=== PATIENT | female | born 1965 | race Hispanic/Latino ===

== ENCOUNTER 2018-06-01 08:26 | Inpatient (IN) | payer OTHER ==
[~2018-06-01] VITALS: Ht 167.6 cm; Wt 88.5 kg
[~2018-06-01 08:26] MED LIST: ALBUTEROL0.63 MG/3 INH; ATENOLOL50 MG PO; BUPIVACAINE 7.5MG/ML /DEXTROSE 82.5MG/ML 2 ML AMP INJ ONE; COCONUT OIL1000 MG PO; FENTANYL CITRATE/PF 100MCG/2 ML INJ ONE; MIDAZOLAM HCL 2 MG/2 ML VIAL ONE; NORCO 10-325 T1 EACH PO; ROPIVACAINE 246.25 MG, EPINEPHRINE HCL 1:1000 1ML 0.5 MG, CLONIDINE HCL 0.08 MG, KETORO... IV ONE; TRIAMTERENE PO; VIT E PO
--- OUTSIDE RECORDS SUMMARY | 2018-06-01 08:28 | XMS REPORT ---
Author Author [facility] Address Unknown Phone Unavailable Care Team Providers Care Jacquard Card Cutter Name Role Phone UNKNOWN, REFFERING PP Unavailable RASSOLI, AMIR Unavailable Unavailable Problems This patient has no known problems. Allergies, Adverse Reactions, Alerts This patient has no known allergies or adverse reactions. Medications This patient has no known medications. Encounters Start Date/Time End Date/Time Encounter Type Admission Type Attending Clinicians Care Facility Care Department Encounter ID 2018-05-10 11:43:32 2018-05-10 11:43:32 Emergency [facility] [id number] 2018-05-10 00:00:00 2018-05-10 00:00:[address] [facility] [id number] 2018-05-10 00:00:00 2018-05-10 00:00:[address] [facility] [id number] 2018-05-10 00:00:00 2018-05-10 00:00:[address] [facility] [id number] 2017-02-04 02:04:00 2017-02-04 02:04:00 Emergency E [facility] [id number] Results Test Description Test Time Test Comments Text Results Atomic Results Result Comments XR SHOULDER 2+V.COMPLETE-LEFT 2017-02-04 05:18:13 AFTER HOURS SERVICE ON: 02/04/2017 5:18 AMLeft Shoulder, 2 ViewsLocation Code [id number]: Pain Findings:There is osteopenia. Nondisplaced fracture is noted in the bilateralhumeral head and neck. Glenohumeral joint is within normal limits. Acromioclavicular joint is unremarkable.Impression:1. No dislocation.2. Nondisplaced humeral head and neck fracture. XR HUMERUS 2+V.-LEFT 2017-02-04 05:16:00 AFTER HOURS SERVICE ON: 02/04/2017 5:16 AMLeft Humerus, 2 Views Location Code [id number]: PainFindings:Study is limited technically. There is osteopenia. A nondisplacedlateral humeral head fracture is noted extending to the humeral neck.There is no glenohumeral dislocation.Impression:Nondisplaced lateral humeral head and neck fracture. Urinalysis Complete 2016-12-17 07:30:00 Color (test code=COLOR) Yellow Yellow,Straw,Pl yellow Clarity (test code=CLAR) Clear Clear Specific Jasper (test code=SPGR) 1.023 1.001-1.035 pH (test code=PH) 6.5 5.0-9.0 Ketone (test code=KET) Negative mg/dL Negative Glucose (test code=GLUCUR) Negative mg/dL Negative Protein (test code=PROT) Negative mg/dL Negative Bilirubin (test code=BILI) Negative mg/dL Negative Occult Blood (test code=UDOB) Negative Negative Urobilinogen (test code=UROB) 0.2 mg/dL 0.2-1.0 Nitrite (test code=NIT) Negative Negative Leuk Esterase (test code=LEUK) Negative Negative Micros Exam (test code=MEXAM) Not indicated 85427&PELVIS [id number] 06:55:23CT OF THE ABDOMEN AND PELVIS WITH CONTRASTHISTORY: Abdominal painTECHNIQUE:5 millimeters contrast enhanced axial images of the abdomen and pelviswere performed with venous delays. The images were reviewed in softtissue, lung and bone windows. 2 mm coronal images were reformatted. 100mL of Isovue-300 is given IV. The GFR is greater than 60COMPARISON: None.FINDINGS:Abdomen findings: The liver, adrenals, spleen, pancreas, gallbladder, kidneys and lungwindows are unremarkable.Pelvis findings:Prior hysterectomy. The distal ureters, bladder , appendix andremainder of the bowel are unremarkable. Bone windows are normal.IMPRES ANNA:1. CK [id number] 05:45:00* Test Item Value Reference Range Comments CK (test code=CK) 46 U/L 26-192 CK [id number] 05:45:00* Test Item Value Reference Range Comments CK (test code=CK) 46 U/L 26-192 CKMB (test code=CKMB) 1.3 ng/mL 0.0-2.8 CKMB% (test code=CKMBP) 2.8 % 0.0-3.4 Comprehensive Metabolic [id number] 05:45:00* Test Item Value Reference Range Comments Sodium (test code=NA) 143 mmol/L 135-145 Potassium (test code=K) 4.4 mmol/L 3.5-5.1 Chloride (test code=CL) 108 mmol/L 98-105 Carbon Dioxide (test code=CO2) 26 mmol/L 22-29 Glucose (test code=GLU) 121 mg/dL 70-115 Blood Urea Nitrogen (test code=BUN) 24 mg/dL 6-20 Creatinine (test code=CREAT) 1.0 mg/dL 0.5-0.9 Calcium (test code=CA) 8.8 mg/dL 8.3-10.5 Prot Total (test code=TP) 6.7 g/dL 6.4-8.3 Albumin (test code=ALB) 3.9 g/dL 3.5-5.2 A/G Ratio (test code=AGRATIO) 1.4 Ratio Globulin (test code=GLOB) 2.8 2.9-3.1 Bili Total (test code=TBIL) <0.1 mg/dL 0.1-0.9 Alk Phos (test code=APHOS) 82 U/L 35-104 AST (test code=AST) 36 U/L 1-32 ALT (test code=ALT) 44 U/L 1-33 BUN/Creatinine Ratio (test code=BCRATIO) 24.0 Anion Gap (test code=AGAP) 9 mmol/L 7-16 Estimated GFR (test code=GFR) >60 mL/min/1.73m2 eGFR (estimated Glomerular Filtration Rate) is an estimated value,calculated from the patient's serum creatinine using the MDRD equation.It is NOT the patient's actual GFR. The eGFR provides a more clinicallyuseful measure of kidney disease than serum creatinine alone.This calculation takes sex and race into account, if the informationis provided. If the race is not provided, and the patient isAfrican-Citizen Of [place], multiply by 1.212. If sex is not provided, and thepatient is female, multiply by 0.742. Results for patients <18 years ofage have not been validated by the MDRD study and should be interpretedwith caution.eGFR Result Interpretation:eGFR > or=60 is in the Normal RangeeGFR < 60 may mean kidney diseaseeGFR < 15 may mean kidney failureRanges recommended by the National Kidney Foundat ion,http://nkdep.nih.gov [id number] 05:45:00* Test Item Value Reference Range Comments Lipase (test code=LIP) 34 U/L 13-60 Troponin [id number] 05:45:00* Test Item Value Reference Range Comments Troponin T (test code=IZZY) <0.010 ng/mL 0.000-0.090 [id number] 05:45:00* Test Item Value Reference Range Comments Amylase (test code=MAYANK) 28 U/L 28-100 CBC with [id number] 05:43:00* Test Item Value Reference Range Comments WBC (test code=WBC) 9.2 K/cumm 4.4-10.5 RBC (test code=RBC) 4.94 M/cumm 3.75-5.20 Hemoglobin (test code=HGB) 14.4 gm/dL 12.2-14.8 Hematocrit (test code=HCT) 45.0 % 36.5-44.4 MCV (test code=MCV) 91.0 fL 80-100 MCH (test code=MCH) 29.1 pg 27.0-32.5 MCHC (test code=MCHC) 32.0 g/dL 32.0-37.5 RDW (test code=RDW) 14.7 % 11.5-14.5 Platelet Count (test code=PLTCT) 314 K/cumm 140-440 MPV (test code=MPV) 9.1 fL Diff Method (test code=DIFFM) Auto Neutrophil (test code=NEUT) 60.4 % 36-70 Lymphocyte (test code=LYMPH) 31.4 % 12-44 Monocyte (test code=MONO) 5.8 % 0-11 Eosinophil (test code=EOS) 1.9 % 0-7 Basophil (test code=BASO) 0.5 % 0-2 Neutro Abs (test code=ANEUT) 5.5 K/cumm 1.6-7.4 Lymph Abs (test code=ALYMPH) 2.9 K/cumm 0.5-4.6 Rawlins Abs (test code=AMONO) 0.5 K/cumm 0.0-1.2 Eos Abs (test code=AEOS) 0.18 K/cumm 0.00-0.74 Baso Abs (test code=ABASO) 0.1 K/cumm 0.00-0.21
--- OUTSIDE RECORDS SUMMARY | 2018-06-01 08:28 | XMS REPORT | Clinical Summary ---
Author Author [facility] Organization [facility] Address Unknown Phone Unavailable Care Team Providers Care Coating Machine Operator Name Role Phone PCP Unavailable Allergies Not on File Medications Not on file Active Problems Not on file Encounters Care Team Description Date Type Specialty Yanick Marques MD Productive cough (Primary Dx) 05/10/2018 Emergency Emergency Medicine 05/10/2018 Travel after 05/31/2017 Social History Date Tobacco Use Types Packs/Day Years Used Never Assessed Sex Assigned at Date Recorded Not on file Industry Job Start Date Occupation Not on file Not on file Not on file Travel End Travel History Travel Start No recent travel history available. Last Filed Vital Signs Time Taken Vital Sign Reading 05/10/2018 10:27 AM OLDER ADULT SOCIAL WORK SPECIALIST Blood Pressure 137/79 05/10/2018 10:27 AM OLDER ADULT SOCIAL WORK SPECIALIST Pulse 66 05/10/2018 10:27 AM OLDER ADULT SOCIAL WORK SPECIALIST Temperature 36.6 C (97.9 F) 05/10/2018 10:27 AM OLDER ADULT SOCIAL WORK SPECIALIST Respiratory Rate 18 05/10/2018 10:27 AM OLDER ADULT SOCIAL WORK SPECIALIST Oxygen Saturation 97% - Inhaled Oxygen - Concentration 05/10/2018 10:27 AM OLDER ADULT SOCIAL WORK SPECIALIST Weight 87.6 kg (193 lb 3.2 oz) - Height - - Body Mass Index - Plan of Treatment Health Maintenance Due Date Last Done Comments Cervical Cancer Scrn (3 02/09/1985 Yrs) Breast Cancer Scrn 2004 (Yearly) Colorectal Cancer Scrn 02/09/2014 Annual (FIT/FOBT) Age 50 to 75 IMM Influenza Seasonal 01/25/2018Jan to June (>/=19 yrs) Results Not on fileafter 05/31/2017 Insurance Type Payer Benefit Subscriber ID Effective Phone Address Plan / Dates Group [facility] xxxxxxxxx 2018-[address] [facility] [id number] [place] [address]
[2018-06-01] MEDS ORDERED: VANCOMYCIN HCL 500 MG ONE (08:29)
[2018-06-01] MEDS ORDERED: TRANEXAMIC ACID 1,000 MG/10 ML ML ONE (08:29)
[2018-06-01] MEDS ORDERED: BACITRACIN 50,000 UNIT VIAL ONE (08:30)
[2018-06-01] MEDS ORDERED: SODIUM CHLORIDE 0.9% 500ML 500 ML ONE (08:30)
[2018-06-01] MEDS ORDERED: GABAPENTIN 300 MG CAP ONE (09:36)
[2018-06-01] MEDS ORDERED: CEFAZOLIN SOD 2 GM/D5W 50ML 50 ML IV ONE (09:36)
[2018-06-01] MEDS ORDERED: CELECOXIB 200 MG CAP ONE (09:36)
[2018-06-01] MEDS ORDERED: DEXAMETHASONE SOD PHOS 10 MG/1 ML VIAL ONE (09:36)
[2018-06-01] MEDS ORDERED: MORPHINE SULFATE/PF 1 MG/1 ML 10ML VIAL ONE (11:12)
[2018-06-01] MEDS ORDERED: HYDROCODONE/APAP 7.5MG-325MG 1 EA TAB PO PRN (12:45)
[2018-06-01] MEDS ORDERED: KETOROLAC TROMETHAMINE 30 MG/ML VIAL IV PRN (12:45)
[2018-06-01] MEDS ORDERED: DIPHENHYDRAMINE HCL INJ 50 MG/ML VIAL IM/IV PRN (12:45)
[2018-06-01] MEDS ORDERED: PROMETHAZINE HCL (IM) 25 MG/ML VIAL IM PRN (12:45)
[2018-06-01] MEDS ORDERED: ACETAMINOPHEN 650 MG SUPP PR PRN (12:45)
[2018-06-01] MEDS ORDERED: ONDANSETRON HCL INJ 2MG/ML 2ML 2 MG/ML VIAL IV PRN (12:45)
[2018-06-01] MEDS ORDERED: DOCUSATE SODIUM 100 MG CAP PO PRN (12:45)
[2018-06-01] MEDS ORDERED: HYDROCODONE/APAP 5MG-325MG TAB PO PRN (12:45)
[2018-06-01 13:26] LABS: BASOPHILS % 0.1 % (0.0-1.0); EOSINOPHILS % 0.2 % (0.0-6.0); HEMATOCRIT 28.8 % (34.2-44.1); LYMPHOCYTES # (AUTO) 1.3 (1.0-3.2); LYMPHOCYTES % 10.5 % (18.0-39.1); MEAN CORPUSCULAR HEMOGLOBIN 29.1 pg (28-32); MEAN CORPUSCULAR HGB CONC 31.3 g/dL (31-35); MEAN CORPUSCULAR VOLUME 93.2 fL (81-99); MONOCYTES # (AUTO) 0.3 (0.2-0.8); MONOCYTES % 2.2 % (4.4-11.3); NEUTROPHILS # (AUTO) 10.5 (2.1-6.9); NEUTROPHILS % 85.3 % (38.7-80.0); PLATELET COUNT 183 x10e3/uL (140-360); RED BLOOD COUNT 3.09 x10e6/uL (3.6-5.1); RED CELL DISTRIBUTION WIDTH 13.7 % (11.7-14.4)
--- NOTE | 2018-06-01 13:32 | Operative Report ---
DATE OF PROCEDURE: June 01, 2018 TONGER: Dell Zamora PA-C The patient was brought to the operating room for induction of anesthesia. Throughout this case, my PA's assistance was necessary for retraction of soft tissue and positioning of the extremity. This allows for efficient and technically successful execution of the operation and is considered medically necessary. PREOPERATIVE DIAGNOSIS: Complications pertaining to internal fixation, left hip. POSTOPERATIVE DIAGNOSIS: Complications pertaining to internal fixation, left hip. PROCEDURE: Hardware removal and conversion to left total hip replacement. 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 She had a femoral neck fracture that was to fixed with percutaneous screws. This was failed. She would like to proceed with a left hip replacement. The risks and benefits have been explained. She states she understands and wishes to proceed. DESCRIPTION OF PROCEDURE: The patient was brought to the operating room and given both a spinal and an epidural anesthetic. She was positioned in the right lateral decubitus position. Her left hip was prepped and draped in a sterile manner. A preoperative time out was performed. A posterior approach was made to the left hip. Hemostasis was obtained with electrocautery. A self-retaining Charnley retractor was placed. Abundant subcutaneous adipose tissue was encountered. Three cannulated screws were removed from the proximal lateral femur. The washers of each screws were removed. The previous incision was partially utilized to remove those screws. Attention was returned to the posterior hip. The short external rotators and posterior capsule were severely contracted. These were released and the hip was dislocated. An oscillating saw was used to resect the femoral head. Severe deformity and loss of articular cartilage was noted. Acetabular retractors were placed. Labral remnants were excised. The true floor of the acetabulum was established with a 46-mm reamer. The socket was sequentially reamed to 53 mm. This accomplished bleeding hemispherical cancellous bone. A Rell Biomet 54 mm outer diameter osteo-T socket was then impacted into place. Fixation was augmented with a single 20-mm screw placed into the ilium. Nice secure fixation was obtained. A highly cross link polyethylene liner was seated. Care was taken to make sure that there was no evidence of soft tissue interposition. Throughout this portion of the case, the hip was thoroughly irrigated with a shower-tip pulsatile lavage on numerous occasions. Attention was directed towards the proximal femur. This was also quite severely contracted. Large osteophyte off the anterior femoral neck were excised. A taper pin reamer was used to establish entry to the femoral canal. The Taperloc broaches were impacted. A size 10 stem had good canal fill and rotational stability. Trial reductions were performed. The hip was stable, but quite tight in extension. A -6 head was felt to be appropriate. The trial implants were removed. The hip was further irrigated with a shower-tip pulsatile lavage. A 100 mL premixed pericapsular MURRAY injection was placed into the surroundings soft tissue. The implants were seated and the head was seated onto a clean and dry stem. A final reduction was performed. The capsule was repaired with #2 Ethibond. The proximal tensor fascia and gluteal fascia were closed with #2 Ethibond. The skin was closed with subcuticular Vicryl and kimberley. A sterile bandage was applied. She was returned to the supine position. Estimated blood loss was 150 mL. All needle and sponge counts were correct. Job#: [id number] SHANNON
--- OUTSIDE RECORDS SUMMARY | 2018-06-01 13:34 | XMS REPORT | Clinical Summary ---
Author Author [facility] Organization [facility] Address Unknown Phone Unavailable Care Team Providers Care Box Press Operator Name Role Phone PCP Unavailable Allergies [...] Taken Vital Sign Reading 05/10/2018 10:27 AM CARTON LETTERING MACHINE OPERATOR Blood Pressure 137/79 05/10/2018 10:27 AM CARTON LETTERING MACHINE OPERATOR Pulse 66 05/10/2018 10:27 AM CARTON LETTERING MACHINE OPERATOR Temperature 36.6 C (97.9 F) 05/10/2018 10:27 AM CARTON LETTERING MACHINE OPERATOR Respiratory Rate 18 05/10/2018 10:27 AM CARTON LETTERING MACHINE OPERATOR Oxygen Saturation 97% - Inhaled Oxygen - Concentration 05/10/2018 10:27 AM CARTON LETTERING MACHINE OPERATOR Weight 87.6 kg (193 lb 3.2 oz) [...] Effective Phone Address Plan / Dates Group [facility] xxxxxxxxx 2018-8 [address] [facility] [id number] [place] [address]
[2018-06-01 13:40] LABS: ANION GAP 15.2 mmol/L (8-16); BLOOD UREA NITROGEN 16 mg/dL (7-26); BUN/CREATININE RATIO 29 (6-25); CALCIUM 7.3 mg/dL (8.4-10.2); CARBON DIOXIDE 16 mmol/L (22-29); CHLORIDE 106 mmol/L (98-107); CREATININE, SERUM 0.55 mg/dL (0.57-1.11); EST GLOMERULAR FILTRATION RATE > 60 ML/MIN (60-); GLUCOSE 76 mg/dL (74-118); POTASSIUM 4.2 mmol/L (3.5-5.1); SODIUM 133 mmol/L (136-145)
--- NOTE | 2018-06-01 14:26 | Diagnostic Imaging Report ---
Radiograph of the pelvis - 1 view HISTORY: Pain COMPARISON: None available. FINDINGS: Bones: No acute displaced fracture. Osseous alignment is within normal limits. Joints: Patient status post left hip replacement with associated postsurgical change. The surgical hardware is intact without evidence of failure or loosening. Soft tissues: The soft tissues appear unremarkable. IMPRESSION: Patient status post left hip replacement with associated postsurgical change. The surgical hardware is intact without evidence of failure or loosening. Signed by: Dr. Chadd Woodward M.D. on 06/01/2018 2:23 PM
--- NOTE | 2018-06-01 14:48 | NUR ---
RECEIVED REPORT FROM FRIEDA . AWAITING FOR PT TO ARRIVE TO UNIT
[2018-06-01 15:11] VITALS: BP 110/68
[2018-06-01] MEDS ORDERED: INFLUENZA VIRUS VAC SPLIT INJ 0.5 ML SYR IM SCH (15:14)
[2018-06-01 15:18] VITALS: BP 110/68
--- NOTE | 2018-06-01 15:18 | NUR ---
RECEIVED PT TO FLOOR AA0X3. PT HAS A DRESSING TO HER LEFT HIP DRY AND INTACT. PT IS NUMBER FORM WAIST DOWN. PT HAS A SPINAL BLOCK EPIDURAL. PER RN FRIEDA , PT IS TO BE ON BEDREST UNTIL ANESTHESIA WEARS OFF. PT NOW HAS A RIGHT AC 20 G WITH FLUIDS AT 100CC.HR . PT DENIES HAVING ANY PAIN. FOOT PUMPS ON , COMPRESSION STOCKINGS ON RIGHT LEG ON. PT BARRERA HUNG BELOW BED AND IS DRAINING CLEAR YELLOW URINE. WILL CONTINUE TO CARE FOR PT AT THIS TIME. SIDE RAILSX2, BED WHEELS LOCKED, CALL LIGHT IS WITHIN EASY REACH, INSTRUCTED TO CALL FOR ASSISTANCE IF NEEDED
[2018-06-01] MEDS: SODIUM CHLORIDE 0.9% 1000ML 1,000 ML IV SCH ×2 (15:46→22:34)
[2018-06-01 16:24] VITALS: BP 110/68
[2018-06-01] MEDS ORDERED: CELECOXIB 100 MG CAP PO SCH (17:00)
[2018-06-01] MEDS: CEFAZOLIN SOD 1 GM/NS 50ML 50 ML IV SCH (17:13)
[2018-06-01] MEDS: ASPIRIN 325 MG TAB PO SCH (17:13)
[2018-06-01] MEDS: CELECOXIB 200 MG CAP PO SCH (17:13)
[2018-06-01] MEDS ORDERED: KETOROLAC TROMETHAMINE 30 MG/ML VIAL ONE (17:46)
[2018-06-01] MEDS ORDERED: PROPOFOL IV EMULSION 10 MG/ML 20 ML VIAL ONE (17:46)
[2018-06-01] MEDS ORDERED: ACETAMINOPHEN 1000 MG/100 ML IV ONE (17:46)
[2018-06-01] MEDS: ACETAMINOPHEN 1000 MG/100 ML IV SCH (17:52)
[2018-06-01 20:00] VITALS: BP 150/73
[2018-06-01] MEDS ORDERED: ZOLPIDEM TARTRATE 5 MG TAB PO PRN (21:00)
[2018-06-01 21:10] VITALS: BP 150/73
--- NOTE | 2018-06-01 21:46 | NUR ---
PATIENT CONTINUES TO ITCH SEVERELY, NO RASH NOTED, BREATHING EVEN AND UNLABORED. SPOKE WITH MD, NEW ORDERS RECEIVED AND IMPLEMENTED.
[2018-06-01] MEDS: HYDROCODONE/APAP 10MG-325MG TAB PO PRN (22:00)
[2018-06-01] MEDS: DIPHENHYDRAMINE HCL INJ 50 MG/ML VIAL IM/IV PRN (22:00)
[2018-06-02 00:39] VITALS: BP 102/51
[2018-06-02] MEDS: SODIUM CHLORIDE 0.9% 1000ML 1,000 ML IV SCH (01:49)
[2018-06-02] MEDS: CEFAZOLIN SOD 1 GM/NS 50ML 50 ML IV SCH ×2 (01:49→10:04)
[2018-06-02 04:00] VITALS: BP 136/69
[2018-06-02] MEDS: HYDROCODONE/APAP 10MG-325MG TAB PO PRN ×4 (05:29→22:20)
--- NOTE | 2018-06-02 05:30 | Consultation ---
DATE OF CONSULTATION: REASON FOR CONSULTATION: Postop medical management. HISTORY OF PRESENT ILLNESS: Patient is a 53-year-old lady status post left hip arthroplasty who is doing well postoperatively. Has some pain in the left hip . REVIEW OF SYSTEMS: She denies any fever, chills, nausea, vomiting, abdominal pain, or shortness of breath. PAST MEDICAL HISTORY: , stroke, heart attack. MEDICATIONS: See JUN. ALLERGIES: . SOCIAL HISTORY: Less than 1-pack per day smoker. No alcohol. FAMILY HISTORY: Noncontributory. PHYSICAL EXAMINATION VITALS: 96.1, pulse 87, blood pressure 118/51, sats 91%. GENERAL: She is in no apparent distress lying in bed. CARDIOVASCULAR: Regular rate and rhythm. NECK: Supple. LUNGS: Clear to auscultation bilaterally. ABDOMEN: Good bowel sounds. Soft and nontender. EXTREMITIES: No clubbing or cyanosis. NEUROLOGICAL: Nonfocal. IMPRESSION AND PLAN 1. Anemia: Check a CBC. 2. Left hip pain: Continue with . 3. Hypertension: Continue to monitor. 4. History of coronary artery disease: Continue with medications. Please see hospital chart for full details. Job#: [id number] SHANNON
[2018-06-02] MEDS: ACETAMINOPHEN 1000 MG/100 ML IV SCH ×3 (05:41→12:07)
[2018-06-02 06:30] LABS: HEMATOCRIT 37.8 % (34.2-44.1); HEMOGLOBIN 12.1 g/dL (12.0-16.0)
[2018-06-02 07:56] VITALS: BP 129/60
[2018-06-02] MEDS: DIPHENHYDRAMINE HCL INJ 50 MG/ML VIAL IM/IV PRN ×3 (08:28→22:45)
[2018-06-02] MEDS: CELECOXIB 200 MG CAP PO SCH ×2 (09:00→17:00)
[2018-06-02] MEDS: ASPIRIN 325 MG TAB PO SCH ×2 (09:50→18:00)
[2018-06-02] MEDS ORDERED: HYDROXYZINE HCL 25 MG TAB PO PRN (11:45)
--- NOTE | 2018-06-02 11:45 | NUR ---
STATES "HAS TO GO HOME", SITTING ON SIDE OF BED WITH ABDUCTOR PILLOW IN BETWEEN LEGS, WITH ASSISTANCE, PT REPOSITIONED, PT RAISING VOICE, PT CONTINUES TO C/O ITCHING, SCRATCHING SELF WITH FORK, PCT REMOVED FORK FROM PT, PT RAISED VOICE AT PCT, NURSE EDUCATED PT THAT WILL CALL MD FOR ITCHING MEDICATION, PT SHAKING HEAD, RAISING VOICE, STATES "BEEN ITCHING SINCE I CAME OUT OF SURGERY", AGAIN EDUCATED THAT IT IS NOT TIME FOR BENADRYL, WILL CALL MD FOR MEDICATION TO HELP WITH ITCHING, PT FAMILY ENCOURAGED TO BRING IN BACK EVENT DECORATOR THAT SHE USES AT HOME SO PT WILL NOT USE FORK TO SCRATCH HERSELF, HE VERBALIZED UNDERSTANDING, TELEPHONED MD BUCK, ORDERS NOTED
[2018-06-02 11:59] VITALS: BP 138/65
[2018-06-02] MEDS ORDERED: ACETAMINOPHEN 1000 MG/100 ML IV PRN (12:45)
--- NOTE | 2018-06-02 12:46 | NUR ---
GRISELDA WESTBROOK WITH MD ZAVALA INTO SEE PT, AWARE THAT PT C/O "CANT FEEL LEG FROM KNEE DOWN" POINTING TO LLE
--- NOTE | 2018-06-02 16:00 | NUR ---
SPOKE WITH MD BUCK, MADE AWARE PT HAS NOT VOIDED , ORDERS NOTED
--- NOTE | 2018-06-02 17:24 | NUR ---
PT REFUSING CELEBREX, STATES THAT "IS WHAT CAUSED HER TO ITCH AFTER SURGERY", EMAR NOTED
[2018-06-02 18:45] VITALS: BP 106/55
--- NOTE | 2018-06-02 18:58 | NUR ---
PT VOIDED AT THIS TIME, DIAPER CHANGED Addendum: 06/02/18 at 1945 by Kianna Terry RN PT STILL REPORTS "UNABLE TO FEEL LEG" POINTING TO LLE
--- NOTE | 2018-06-02 19:21 | NUR ---
WALKING ROUNDS PERFORMED, RECEIVED PT LAYING SEMI FOWLERS IN BED, AAOX3, RR EVEN AND NON-LABORED, ON RA. NO S/SX OF DISTRESS NOTED. DRESSING TO (L) HIP NOTED TO BE CDI. LEFT PT LAYING SEMI FOWLERS IN BED, BED IN LOW LOCKED POSITION, SIDE RAILS UPX2, CALL LIGHT AND PHONE WITHIN REACH.
[2018-06-02 20:00] VITALS: BP 111/63
[2018-06-03] VITALS: BP 123/67
--- NOTE | 2018-06-03 00:05 | NUR ---
NEW IV STARTED TO (R) FA 20G, FLUSHES WITHOUT DIFFICULTY, BLOOD RETURN NOTED.
[2018-06-03 01:00] VITALS: BP 123/67
--- NOTE | 2018-06-03 03:03 | NUR ---
patient asleep, no pain or distress noted.
[2018-06-03 04:00] VITALS: BP 137/79
[2018-06-03] MEDS: HYDROCODONE/APAP 10MG-325MG TAB PO PRN (04:26)
[2018-06-03 06:25] LABS: HEMATOCRIT 33.6 % (34.2-44.1); HEMOGLOBIN 10.9 g/dL (12.0-16.0)
--- NOTE | 2018-06-03 07:14 | NUR ---
pt lying supine at this time, resp even and unlabored, no distress noted, pt awake , deepa light in reach.
[2018-06-03] MEDS: DIPHENHYDRAMINE HCL INJ 50 MG/ML VIAL IM/IV PRN (07:36)
[2018-06-03 07:45] VITALS: BP 148/82
[2018-06-03] MEDS: CELECOXIB 200 MG CAP PO SCH (07:59)
[2018-06-03] MEDS: ASPIRIN 325 MG TAB PO SCH (07:59)
[2018-06-03] MEDS ORDERED: ASPIRIN325 MG PO (08:43)
--- NOTE | 2018-06-03 10:47 | NUR ---
CASE MANAGEMENT INITIAL ASSESSMENT Oil Operator to bedside to discuss plan of care with patient/family. CM/SW role and care transitions discussed. Anticipated discharge plan discussed along with duration of care. CM/SW discussed patients right to make decisions in care. CM/SW work hours given. Patient lives: with her fiance Terence Palmer and two brothers Admit/Transfer: from home, came for planned procedure Hospital/ER visits since last admit: none POA/Emergency contact: Terence Palmer [phone] Current/Previous Home Health: none PCP/Follow-up Care: Dr. Arthur Hill; Dr. Sanders for ortho Current/Previous DME: walker, cane, wheelchair, bedside commode Medications (referring to index hospitalization or the first time you were in the hospital) a. Were changes made in your medications when you were in the hospital on [date of index hospitalization]? n/a b. Did you understand the changes? n/a c. Were you able to obtain your new medications right away? n/a d. Were you able to take your medications like the doctor wanted you to? n/a e. Did the hospital give you an accurate, easy to understand list of medications when you left? n/a Scale of 1-10 how comfortable does patient feel with disease management in outpatient setting: Other Services: none Employment Status: unemployed Areas of Concerns: weakness Referral Needs: home health Education Needs: medical management, physical therapy, hip precautions IMM/ROSALES given and signed (if applicable): n/a Goal for discharge: home with home health CM/SW left business card at the bedside with contact information. Name and number was also written on the patients whiteboard. Patient verbalized understanding of discussion. CM will follow-up with ongoing discharge and transition of care needs. DC plans were pre-arranged by Dr. Sanders's office as follows: DME with [employer] - [phone]; walker and bedside commode has been delivered to pt's bedside. Home health with [facility] - P [phone], F [phone]; Choice letter signed and placed in chart. Copy to pt. Spoke with Lauren in office and informed her pt is discharging today. She stated she has scheduled pt to be seen tomorrow. Operative report faxed.
[2018-06-03 12:07] VITALS: BP 218/81
--- NOTE | 2018-06-03 12:39 | NUR ---
Pt needs platform for walker for safe discharge. Spoke to pt who signed choice for [facility] [employer]. Order faxed to [employer] at [phone] / P [phone] Informed liaison Ligia Cisse that pt is discharging today.
--- NOTE | 2018-06-03 13:57 | NUR ---
Pt wanting to go home and does not want to wait for platform to be delivered to hospital. RALF Steven reached out to DARIANA Sharpe with Dr. Sanders to make sure it was ok for pt to discharge home before platform delivered. He was fine with that. Per [employer] will deliver equipment to pt's house tomorrow.
== END 2018-06-03 14:00 | disposition home health service (06) | DRG 941 ==
LOC: OR 08:26 → PACU V 12:37 → MED/SURG 14:59
PROVIDERS: ADMIT Specialist; ATTEND Specialist
PROC: 0SRB0J9 Replacement of Left Hip Joint with Synthetic Substitute, Cemented, Open Approach (ICD-10-PCS; principal; 2018-06-01 11:00)
PROC: 0SPB0JZ Removal of Synthetic Substitute from Left Hip Joint, Open Approach (ICD-10-PCS; principal; 2018-06-01 11:00)
DX: T84.195D Other mechanical complication of internal fixation device of left femur, subsequent encounter (principal); M16.52 Unilateral post-traumatic osteoarthritis, left hip; Z86.73 Personal history of transient ischemic attack (TIA), and cerebral infarction without residual deficits; I25.2 Old myocardial infarction; D64.9 Anemia, unspecified; I25.10 Atherosclerotic heart disease of native coronary artery without angina pectoris; F17.210 Nicotine dependence, cigarettes, uncomplicated; Z86.19 Personal history of other infectious and parasitic diseases
CPT/HCPCS: 36415; 72170; 80048; 85014; 85018; 85025; 86850; 86900; 86920; 87071; 87075; 87205; 93005; 97139; C1713; J0171; J0690; J1100; J1200; J1885; J2250; J2795; J3370; J3410; J7030; J7040